=== PATIENT | male | born 1930 | race Caucasian/White ===

== ENCOUNTER 2016-04-20 02:10 | Emergency (ER) | payer MEDICARE, OTHER ==
[~2016-04-20] VITALS: Ht 182.9 cm; Wt 76.0 kg
--- OUTSIDE RECORDS SUMMARY | 2016-04-20 02:13 | XMS REPORT | Continuity of Care Document ---
Author Author [facility] Organization [facility] Address Unknown Phone Unavailable Care Team Providers Care Office Machines Wirer Name Role Phone Database, Not In PCP Unavailable Source Comments Some departments are not documenting in the electronic medical record. If you do not see the information that you expected, contact Release of Information in the Health Information Management department at [phone] for further assistance in locating additional records.[facility] Active Allergies and Adverse Reactions Not on File Current Medications Not on file Active Problems Not on file Social History Tobacco Use Types Packs/Day Years Used Date Never Assessed Plan of Care Health Maintenance Due Date Last Done Comments Physical (Comprehensive) 01/08/1937 Exam Pertussis Vaccine 01/08/1939 Tetanus Vaccine 01/08/1945 Shingles Vaccine 1988 Prevnar/Pneumovax (#1) 01/08/1993 Influenza Vaccine 12/06/2014 Results from Last 3 Months Not on file
--- OUTSIDE RECORDS SUMMARY | 2016-04-20 02:17 | XMS REPORT | Continuity of Care Document ---
Author Author [facility] Organization [facility] Address Unknown Phone Unavailable Care Team Providers Care It Communications Manager Name Role Phone Database, Not In PCP Unavailable Source Comments Some departments are not documenting in the electronic medical record. If you do not see the information that you expected, contact Release of Information in the Health Information Management department at [phone] for further assistance in locating additional records.[facility] Active Allergies and Adverse Reactions Not [...]
[2016-04-20] MEDS ORDERED: SODIUM CHLORIDE FLUSH 10 ML SYR IV PRN (02:30)
[2016-04-20] MEDS ORDERED: SODIUM CHLORIDE FLUSH 3 ML SYR IV PRN (02:30)
--- NOTE | 2016-04-20 02:30 | NUR ---
PT AWAKE BUT CONFUSED- HX OF DEMENTIA PER FAMILY. TONIGHT REPORTS PT WAS GRABBING AT THE TELEVISION WHEN HE FELL. REPORTS THAT PATIENT HAS BEEN MORE CONFUSED TODAY. DAUGHTERS SAY THAT HE HASN'T BEEN EATING MUCH FOR THE PAST FEW WEEKS. PT WITH DRY MUCOUS MEMBRANES.
--- NOTE | 2016-04-20 02:45 | NUR ---
CLEANED SKIN TEAR TO RT ELBOW AND FOREARM- COVERED SITE WITH TEGADERM AND COBAN. ASSISTED [employer] SALES ENGINEER WITH PORTABLE CXRAY.
[2016-04-20] MEDS ORDERED: LIDOCAINE 1% (XYLOCAINE) 20 ML VIAL INJ ONE (03:15)
--- NOTE | 2016-04-20 03:30 | NUR ---
ASSISTED PT IN CT DEPARTMENT- IT WAS DIFFICULT FOR PT TO REMAIN STILL.
[2016-04-20 03:34] LABS: BASOPHILS % (AUTO) 0 % (0-2); EOSINOPHILS # (AUTO) 0.1 10^3uL; EOSINOPHILS % (AUTO) 1 % (0-4); LYMPHOCYTES # (AUTO) 1.2 X10^3; MEAN CORPUSCULAR HEMOGLOBIN 30.4 PG (26.0-34.0); MEAN CORPUSCULAR HGB CONC 32.7 g/dL (31.0-37.0); MEAN CORPUSCULAR VOLUME 93 FL (80-100); MEAN PLATELET VOLUME 11.7 FL (6.0-9.5); MONOCYTES % (AUTO) 7 % (3-11); NEUTROPHILS # (AUTO) 11.8 X10^3; NEUTROPHILS % (AUTO) 83 % (51-67); PLATELET COUNT 148 10^3uL (150-450); WHITE BLOOD COUNT 14.23 10^3uL (4.0-11.0)
[2016-04-20 03:40] LABS: ANION GAP 18.3 MEQ/L (3-15); CALCULATED IONIZED CALCIUM 3.9 mg/dL (3.8-4.6); TOTAL PROTEIN 7.7 g/dL (6.4-8.5)
--- NOTE | 2016-04-20 04:00 | NUR ---
ASSISTED MD WITH LAC REPAIR.
--- NOTE | 2016-04-20 04:15 | NUR ---
PT RESTLESS. FAMILY AT BEDSIDE.
--- NOTE | 2016-04-20 04:30 | NUR ---
CALLED RADIOLOGY FOR RIB XRAY AND TO MAKE A CD.
[2016-04-20] MEDS ORDERED: CARV3.12T PO (04:37)
[2016-04-20] MEDS ORDERED: DIGO125T PO (04:37)
[2016-04-20] MEDS ORDERED: ceFAZolin 1,000 MG in SODIUM CHLORIDE VIAL (PF) 10 ML IV ONE (04:40)
[2016-04-20] MEDS ORDERED: SODIUM CHLORIDE 100 ML ONE (04:48)
[2016-04-20 05:35] VITALS: BP 169/80
--- NOTE | 2016-04-20 05:37 | NUR ---
REPORT CALLED TO [facility] N[facility]. EMS NOTIFIED OF NEED FOR TRANSFER.
--- NOTE | 2016-04-20 09:44 | Diagnostic Imaging Report ---
INDICATION: Trauma, fall from standing. FINDINGS: There are acute-appearing fractures demonstrated of the left second through fifth ribs with some of these fractures appearing displaced. These are new when compared to a prior study from May 23, 2015. There is no evidence of pneumothorax. There is no left-sided hemothorax or pleural collection evident. Heart size is enlarged. A pacemaker device is demonstrated. There is no evidence of failure. Some advanced degenerative features are present within the left shoulder. IMPRESSION: 1. New acute-appearing left-sided second through fifth rib fractures. No pneumothorax or pleural collection is evident. Dictated by: Dictated on workstation # [id number]
--- NOTE | 2016-04-20 10:02 | Diagnostic Imaging Report ---
EXAMINATION: Portable chest INDICATION: Fall, weakness. Comparison made with prior study from 05/23/2015. FINDINGS: There are several upper lateral left-sided rib fractures demonstrated this includes at least ribs 3 and 4 . There is no pneumothorax or pleural collection. Enlargement of the cardiac silhouette is unchanged. Pacemaker device demonstrated. There is no evidence of failure. IMPRESSION: 1. There are several acute appearing left lateral and upper rib fractures. There is no evidence of a pneumothorax or pleural collection. 2. Enlarged cardiac silhouette without evidence of failure. 3. No focal pulmonary infiltrate or consolidation demonstrated. Dictated by: Dictated on workstation # [id number]
--- NOTE | 2016-04-20 10:26 | Diagnostic Imaging Report ---
PROCEDURE: CT head and CT cervical spine without contrast. TECHNIQUE: Multiple contiguous axial images were obtained through the brain and cervical spine without the use of intravenous contrast. Sagittal and coronal reformations through the cervical spine were then performed. INDICATION: Status post fall. Trauma. Comparison is made with a previous study from May 29, 2011. FINDINGS: There are few tiny regions of hyperdensity along the left insular cortex which are new from the previous examination. In the setting of trauma, these are suspect for small foci of hemorrhage. There are advanced features of background microvascular disease. 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 There is no hydrocephalus. There is no mass effect. There is no abnormal extra-axial collection. The basilar cisterns appear patent. Atherosclerosis demonstrated of the vessels at the skull base with some basilar vessel ectasia. There is an acute left-sided zygomaticomaxillary complex fracture with fractures demonstrated through the left zygomatic arch, the lateral orbital wall and the posterior wall of the left maxillary sinus. There is some blood or fluid in the left maxillary sinus. The intraorbital contents appear unremarkable with no retrobulbar hemorrhage demonstrated. There is preseptal hematoma or soft tissue swelling present. No other facial fractures are evident. Advanced multilevel cervical degenerative disc disease and facet arthropathy are present. There are large bridging osteophytes anteriorly at the cervicothoracic junction. Advanced degenerative features are present at the C1-2 articulation. Craniocervical junction alignment appears maintained and facet alignment appears maintained with no abnormal facet joint or disc space widening. Vertebral body heights appear maintained. No acute cervical spine fracture is demonstrated. Multilevel posterior disc osteophyte complex. The most advanced central canal stenosis appears at the C6-7 and appears moderate to severe. There is also multilevel high-grade foraminal stenosis due to uncovertebral spurring and facet arthropathy. Pacemaker device demonstrated. Lung apices appear clear. Soft tissues of the neck demonstrate no acute abnormalities. IMPRESSION: 1. Tiny focus of hyperdensity along the left insular cortex is suspect for a small region of hemorrhage in the setting of trauma and given that this is new compared to 2011. 2. Remote left occipital infarct and background chronic microvascular changes and age-appropriate volume loss are noted. 3. Acute appearing left-sided orbital zygomaticomaxillary complex fracture. Intraorbital contents unremarkable without retrobulbar hemorrhage. There is preseptal hematoma and soft tissue swelling. 4. No other facial fracture is evident. 5. Advanced degenerative features within the cervical spine without CT demonstration of an acute cervical spine fracture or traumatic malalignment. 6. Atherosclerosis. 7. I agree with the preliminary [facility] report. Dictated by: Dictated on workstation # [id number]
== END 2016-04-20 05:50 | disposition short-term general hospital (02) ==
LOC: ED 02:13
DX: S01.112A Laceration without foreign body of left eyelid and periocular area, initial encounter (principal); S51.011A Laceration without foreign body of right elbow, initial encounter; S02.82XA Fracture of other specified skull and facial bones, left side, initial encounter for closed fracture; S06.0X1A Concussion with loss of consciousness of 30 minutes or less, initial encounter; S02.40DA Maxillary fracture, left side, initial encounter for closed fracture; S02.402A Zygomatic fracture, unspecified side, initial encounter for closed fracture; W18.09XA Striking against other object with subsequent fall, initial encounter; Y92.008 Other place in unspecified non-institutional (private) residence as the place of occurrence of the external cause
CPT/HCPCS: 36415; 70450; 71010; 71100; 72125; 80053; 84484; 85025; 85610; 93005; 96374; 99284; J0690; J7050; 12013; 93010; 99291

== ENCOUNTER → 2016-04-20 | Outpatient (CLI) | payer MEDICARE, OTHER ==
[~2016-04-20] MED LIST: AC500T; CARV3.12T PO; DIGO125T PO; ESOM20CA32 PO; FERR324T4 PO; FLUV80TA; FLUV80TA PO; FURO-124 PO; GLMP4T; HYDR-3702 PO; KCL20TCR; LEVO175T2 PO; LISI5TAB14; LVT.15T PO; MIRT30TA PO; MIRT7.5T8 PO; NF-ESOM40C; TAMS-8 PO; TRAM-25 PO; WARF2.5T
== END ==
LOC: EMS 05:40
PROVIDERS: ATTEND Family Medicine
DX: S02.82XA Fracture of other specified skull and facial bones, left side, initial encounter for closed fracture (principal); S02.40DA Maxillary fracture, left side, initial encounter for closed fracture; W19.XXXA Unspecified fall, initial encounter

== ENCOUNTER 2016-04-28 21:01 | Emergency (ER) | payer MEDICARE, OTHER ==
[~2016-04-28] VITALS: Ht 182.9 cm; Wt 79.5 kg
[2016-04-28 22:36] LABS: BILIRUBIN,URINE Negative (Negative); CLARITY,URINE Cloudy; COLOR,URINE Yellow; GLUCOSE, URINE (UA) Trace (Negative); LEUKOCYTE ESTERASE ,URINE Trace (Negative); PH,URINE 7.5 (5.0 - 8.0); UROBILINOGEN,URINE 0.2 mg/dL (0.2-1.0)
[2016-04-28 22:42] LABS: URINE CENTRIFUGED VOLUME <10mL Unspun
[2016-04-28 22:43] LABS: RBC,URINE None Seen /HPF
--- NOTE | 2016-04-28 23:23 | NUR ---
Bladder scanned pt and found there to be 133ml of urine, no distention noted at this time, and also noted that this is pt's 2nd wet depends.
[2016-04-28] MEDS ORDERED: NITROFURANTOIN 100 MG (MACROBID) CAPSULE PO ONE (23:40)
--- NOTE | 2016-04-29 00:11 | NUR ---
called pt's ride back to [place] they will be here in the next 30 minutes or so
[2016-04-29 00:16] VITALS: BP 123/58
--- NOTE | 2016-04-29 00:20 | NUR ---
RN from [place] called to check on pt, gave dx of pt, and report and that pt will be coming back to the home
--- NOTE | 2016-04-29 00:50 | NUR ---
Assisted pt to dress, changed his wet depends and helped him dress and into his wheel chair, he tolerated well.
== END 2016-04-29 00:55 | disposition home or self-care (01) ==
LOC: ED 21:04
DX: N39.0 Urinary tract infection, site not specified (principal)
CPT/HCPCS: 81003; 81015; 87088; 99283; A9270

== ENCOUNTER → 2016-05-01 | Outpatient (CLI) | payer MEDICARE, OTHER | LOC: EMS 11:49 | PROVIDERS: ATTEND Family Medicine | DX: R82.99 Other abnormal findings in urine (principal); N39.9 Disorder of urinary system, unspecified ==

== ENCOUNTER → 2016-05-17 | Outpatient (REF) | payer MEDICARE, OTHER ==
[2016-05-17 12:17] LABS: BASOPHILS % (AUTO) 1 % (0-2); EOSINOPHILS % (AUTO) 0 % (0-4); LYMPHOCYTES # (AUTO) 1.4 X10^3; MEAN CORPUSCULAR HEMOGLOBIN 30.4 PG (26.0-34.0); MEAN CORPUSCULAR VOLUME 92 FL (80-100); MEAN PLATELET VOLUME 10.7 FL (6.0-9.5); MONOCYTES # (AUTO) 1.3 X10^3; MONOCYTES % (AUTO) 14 % (3-11); NEUTROPHILS % (AUTO) 69 % (51-67); PLATELET COUNT 236 10^3uL (150-450); WHITE BLOOD COUNT 8.75 10^3uL (4.0-11.0)
[2016-05-17 12:40] LABS: ANION GAP 15.4 MEQ/L (3-15)
[2016-05-17 12:52] LABS: ERYTHROCYTE SEDIMENTATION RT* 75 mm/hr (0-19)
== END ==
LOC: LAB 12:06
PROVIDERS: ATTEND Nurse Practitioner Family
DX: M25.531 Pain in right wrist (principal)
CPT/HCPCS: 80048; 85025; 85652; 86140; 87070

== ENCOUNTER → 2016-05-17 | Outpatient (CLI) | payer MEDICARE, OTHER | LOC: RAD 10:50 | PROVIDERS: ATTEND Family Medicine | DX: R05 Cough (principal); M25.531 Pain in right wrist; Z95.0 Presence of cardiac pacemaker | CPT/HCPCS: 71020; 73110 ==

== ENCOUNTER → 2016-05-21 | Outpatient (REF) | payer MEDICARE, OTHER | LOC: LAB 12:09 | PROVIDERS: ATTEND Family Medicine | DX: M10.041 Idiopathic gout, right hand (principal) | CPT/HCPCS: 84550; 86140 ==